=== PATIENT | female | born 1970 | race Caucasian/White ===

== ENCOUNTER 2016-09-28 13:09 | Inpatient (IN) | payer BC ==
[~2016-09-28] VITALS: Ht 165.1 cm; Wt 117.9 kg
[2016-09-28 16:16] LABS: microscopic required? NO
[2016-09-28 16:34] LABS: CALCIUM 8.8 mg/dL (8.5-10.1); CARBON DIOXIDE 22.4 mmol/L (21-32); CHLORIDE SERUM 104 mmol/L (98-107); GFR1 > 60 mL/min; GLUCOSE SERUM 83 mg/dL (74-106); POTASSIUM SERUM 3.8 mmol/L (3.5-5.1); SODIUM SERUM 137 mmol/L (136-145)
[2016-09-28 16:38] LABS: ALBUMIN 3.5 g/dL (3.4-5.0); ALKALINE PHOSPHATASE 79 U/L (46-116); ALT/SGPT 21 U/L (14-59); AMYLASE 88 U/L (25-115); AST/SGOT 16 U/L (15-37); BASOPHIL % 0.4 % (0-2); BILIRUBIN TOTAL 0.2 mg/dL (0.20-1.00); LIPASE 224 IU/L (73-393); PLATELET COUNT 245 x10^3mcL (130-400); TOTAL PROTEIN, SERUM 7.3 g/dL (6.4-8.2)
[2016-09-28 16:57] LABS: urine erythrocyte NEGATIVE (NEGATIVE)
[2016-09-28] MEDS ORDERED: PROPRANOLOL HCL40 MG PO (18:11)
[2016-09-28] MEDS ORDERED: PROZAC40 MG PO (18:11)
[2016-09-28] MEDS ORDERED: ABILIFY15 M1 PO (18:11)
[2016-09-28 20:58] VITALS: BP 131/82
[2016-09-28 21:41] VITALS: BP 131/82
[2016-09-29 05:23] VITALS: BP 100/52
[2016-09-29 06:18] LABS: BASOPHIL % 0.2 % (0-2); PLATELET COUNT 184 x10^3mcL (130-400); RED CELL DISTRIBUTION WIDTH 14.1 % (11.5-14.5)
[2016-09-29 06:27] LABS: CALCIUM 7.7 mg/dL (8.5-10.1); CARBON DIOXIDE 22.9 mmol/L (21-32); CHLORIDE SERUM 108 mmol/L (98-107); GFR1 > 60 mL/min; GLUCOSE SERUM 107 mg/dL (74-106); POTASSIUM SERUM 3.8 mmol/L (3.5-5.1); SODIUM SERUM 141 mmol/L (136-145)
[2016-09-29 08:10] VITALS: BP 130/69
[2016-09-29] MEDS ORDERED: CIPRO500 MG PO (16:31)
[2016-09-29] MEDS ORDERED: FLA500 PO (16:31)
[2016-09-29] MEDS ORDERED: NORCO1 TA2 PO (16:31)
[2016-09-29 17:09] VITALS: BP 130/69
[2016-09-29 20:29] VITALS: BP 128/77
== END 2016-09-29 17:41 | disposition home or self-care (01) | DRG 392 ==
LOC: ED 13:09 → MU 19:48
PROVIDERS: Specialist; ADMIT Internal Medicine Pulmonary Disease
DX: K52.9 Noninfective gastroenteritis and colitis, unspecified (principal); G43.909 Migraine, unspecified, not intractable, without status migrainosus; M79.7 Fibromyalgia; E66.01 Morbid (severe) obesity due to excess calories; F32.9 Major depressive disorder, single episode, unspecified; Z90.89 Acquired absence of other organs; Z88.0 Allergy status to penicillin
CPT/HCPCS: 83880; J0744; J1170; J1885; J2405; J3010; J3490; J7030; Q0092

== ENCOUNTER 2017-12-03 14:15 | Inpatient (IN) | payer BC ==
[~2017-12-03] VITALS: Ht 165.1 cm; Wt 120.9 kg
[~2017-12-03 14:15] MED LIST: ABILIFY15 M1 PO; CIPRO500 MG PO; FLA500 PO; NORCO1 TA2 PO; PROPRANOLOL HCL40 MG PO; PROZAC40 MG PO
[2017-12-03 15:18] VITALS: Ht 165.1 cm; Wt 120.9 kg
[2017-12-03 16:08] LABS: BASOPHIL % 0.5 % (0-2); PLATELET COUNT 272 x10^3mcL (130-400)
[2017-12-03 16:16] LABS: RED CELL DISTRIBUTION WIDTH 14.7 % (11.5-14.5)
[2017-12-03 16:18] LABS: CARBON DIOXIDE 22.4 mmol/L (21-32); CHLORIDE SERUM 104 mmol/L (98-107); GFR1 > 60 mL/min; GLUCOSE SERUM 105 mg/dL (74-106); POTASSIUM SERUM 4.1 mmol/L (3.5-5.1); SODIUM SERUM 139 mmol/L (136-145)
[2017-12-03 16:22] LABS: ALBUMIN 3.4 g/dL (3.4-5.0); ALKALINE PHOSPHATASE 105 U/L (46-116); ALT/SGPT 31 U/L (14-59); AST/SGOT 33 U/L (15-37); BILIRUBIN TOTAL 0.33 mg/dL (0.20-1.00); LIPASE 136 IU/L (73-393); TOTAL PROTEIN, SERUM 7.5 g/dL (6.4-8.2)
[2017-12-03] MEDS ORDERED: INDERAL LA80 MG PO (18:31)
[2017-12-03] MEDS ORDERED: PROZAC40 MG PO (18:40)
[2017-12-03 19:56] VITALS: BP 124/63
[2017-12-04 00:45] VITALS: BP 113/70
[2017-12-04 04:16] VITALS: BP 143/84
[2017-12-04 07:09] LABS: PLATELET COUNT 246 x10^3mcL (130-400)
[2017-12-04 07:12] LABS: BASOPHIL % 0 % (0-2); RED CELL DISTRIBUTION WIDTH 14.6 % (11.5-14.5)
[2017-12-04 07:58] LABS: ALKALINE PHOSPHATASE 98 U/L (46-116); ALT/SGPT 23 U/L (14-59); AST/SGOT 16 U/L (15-37); BILIRUBIN TOTAL 0.35 mg/dL (0.20-1.00); CALCIUM 8.4 mg/dL (8.5-10.1); CARBON DIOXIDE 22.7 mmol/L (21-32); CHLORIDE SERUM 105 mmol/L (98-107); CREATININE SERUM 0.9 mg/dL (0.6-1.0); GFR1 > 60 mL/min; GLUCOSE SERUM 154 mg/dL (74-106); POTASSIUM SERUM 4.7 mmol/L (3.5-5.1); SODIUM SERUM 140 mmol/L (136-145); TOTAL PROTEIN, SERUM 6.9 g/dL (6.4-8.2)
[2017-12-04 08:00] LABS: ALBUMIN 2.9 g/dL (3.4-5.0)
[2017-12-04 08:23] VITALS: BP 116/71
[2017-12-04 13:10] VITALS: BP 116/71
[2017-12-04 17:49] VITALS: BP 138/67
[2017-12-04 20:45] VITALS: BP 118/63
[2017-12-05 05:01] VITALS: BP 90/49
[2017-12-05 07:26] LABS: BASOPHIL % 0.4 % (0-2); PLATELET COUNT 231 x10^3mcL (130-400)
[2017-12-05 07:27] LABS: RED CELL DISTRIBUTION WIDTH 15.1 % (11.5-14.5)
[2017-12-05 07:47] LABS: CALCIUM 8.1 mg/dL (8.5-10.1); CARBON DIOXIDE 25.2 mmol/L (21-32); CHLORIDE SERUM 108 mmol/L (98-107); CREATININE SERUM 0.9 mg/dL (0.6-1.0); GFR1 > 60 mL/min; GLUCOSE SERUM 102 mg/dL (74-106); POTASSIUM SERUM 3.9 mmol/L (3.5-5.1); SODIUM SERUM 143 mmol/L (136-145)
[2017-12-05 10:00] VITALS: BP 113/60
[2017-12-05 16:11] VITALS: BP 106/57
[2017-12-05 17:13] VITALS: BP 113/60
== END 2017-12-05 18:00 | disposition home or self-care (01) | DRG 342 ==
LOC: ED 14:15 → MU 18:13
PROVIDERS: Emergency Medicine; Internal Medicine; Internal Medicine Pulmonary Disease; Surgery
PROC: 0DTJ4ZZ Resection of Appendix, Percutaneous Endoscopic Approach (ICD-10-PCS; principal; 2017-12-03 21:00)
DX: K35.80 Unspecified acute appendicitis (principal); Z68.41 Body mass index [BMI] 40.0-44.9, adult; G43.909 Migraine, unspecified, not intractable, without status migrainosus; M79.7 Fibromyalgia; F32.9 Major depressive disorder, single episode, unspecified; I10 Essential (primary) hypertension; E66.01 Morbid (severe) obesity due to excess calories; Z88.0 Allergy status to penicillin; Z90.89 Acquired absence of other organs
CPT/HCPCS: 94150; J1170; J1885; J1956; J2175; J2250; J2270; J2405; J3010; J3490; J7030; Q0092

== ENCOUNTER 2020-03-01 10:19 | Emergency (ER) | payer OTHER ==
[~2020-03-01] VITALS: Ht 165.1 cm; Wt 112.9 kg
[~2020-03-01 10:19] MED LIST changes: +INDERAL LA80 MG PO
[2020-03-01 10:32] VITALS: Ht 165.1 cm; Wt 112.9 kg
[2020-03-01 12:26] VITALS: BP 123/67
== END 2020-03-01 12:27 | disposition home or self-care (01) ==
LOC: ED 10:19
DX: R07.89 Other chest pain (principal); M54.6 Pain in thoracic spine; I10 Essential (primary) hypertension; G43.909 Migraine, unspecified, not intractable, without status migrainosus; Z98.890 Other specified postprocedural states; Z90.89 Acquired absence of other organs; Z88.0 Allergy status to penicillin
CPT/HCPCS: J1885